=== PATIENT | female | born 1950 | race Hispanic/Latino ===

== ENCOUNTER → 2018-10-07 | Outpatient (CLI) | payer MEDICARE ==
--- NOTE | 2018-10-07 16:31 | Diagnostic Imaging Report ---
[facility]: Brain MRI without IV contrast History: Dizziness, giddiness, history of prior stroke Comparison studies: None Technique: Sagittal and axial T2 FS, axial DWI, axial T2*GRE, axial T1 FLAIR and axial coronal T2 FLAIR. Intravenous contrast: None Findings: Scalp: Normal in signal. No masses. Bone marrow: Incidental hyperostosis frontalis internus. No signal abnormalities. Brain sulci: Appropriate for age. Ventricles: Normal in size. No hydrocephalus. Extra axial spaces: No mass, no fluid collection. Parenchyma: Chronic insults with encephalomalacia and gliosis along the right superior, middle and inferior frontal gyri with involvement of the right frontal operculum and right anterior insula in the right MCA territory. Small additional cortical/juxtacortical insults are present in the right superior parietal lobule and in the precuneus gyrus of the posterior right medial parietal lobe in the distal right MCA territory. Small insult in the right precuneus gyrus is with decreased signal on the T2*GRE sequence which may reflect hemosiderin related to prior hemorrhage A few additional small foci of T2 FLAIR hyperintensity in the supratentorial white matter nonspecific most compatible with chronic microvascular ischemic changes. 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 Less likely consideration would include dystrophic calcification as sequela prior infection/inflammation or small cavernous malformation. No mass, acute hemorrhage or acute ischemia. Suprasellar region: No abnormalities. Craniocervical junction: Patent foramen magnum. No Chiari malformation. Vessels: Normal flow-voids in the arteries and sinuses. IMPRESSION: 1. 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 2. Minimal supratentorial chronic microvascular ischemic changes. Signed by: Dr. Itz Mckinley M.D. on 10/07/2018 4:28 PM
== END ==
LOC: MRI 13:15
PROVIDERS: ATTEND Family Medicine
DX: R42 Dizziness and giddiness (principal); Z86.73 Personal history of transient ischemic attack (TIA), and cerebral infarction without residual deficits
CPT/HCPCS: 70551

== ENCOUNTER 2022-01-29 18:26 | Emergency (ER) | payer OTHER ==
[~2022-01-29] VITALS: Ht 157.5 cm; Wt 83.5 kg
== END 2022-01-29 21:45 | disposition home or self-care (01) ==
LOC: FSED 18:30
DX: S00.83XA Contusion of other part of head, initial encounter (principal); S63.592A Other specified sprain of left wrist, initial encounter; S83.8X2A Sprain of other specified parts of left knee, initial encounter; W01.0XXA Fall on same level from slipping, tripping and stumbling without subsequent striking against object, initial encounter; Y93.01 Activity, walking, marching and hiking; Y99.0 Civilian activity done for income or pay; I10 Essential (primary) hypertension; E11.9 Type 2 diabetes mellitus without complications; E78.5 Hyperlipidemia, unspecified; Z86.73 Personal history of transient ischemic attack (TIA), and cerebral infarction without residual deficits
CPT/HCPCS: 70450; 99283

== ENCOUNTER 2024-07-13 13:54 | Observation (INO) | payer MEDICARE ==
[2024-07-13] VITALS (7 sets, daily range): BP systolic 152–201; BP diastolic 88–110; PULSE 76–88; RESP 16–21; TEMP 97.6–98.9; O2SAT 98–100
[~2024-07-13] VITALS: Ht 157.5 cm; Wt 85.3 kg
[~2024-07-13 13:54] MED LIST: MUCINEX DM ER1 EACH PO; ONDANSETRON ODT4 MG PO
[2024-07-13] MEDS ORDERED: SODIUM CHLORIDE 0.9% 100 ML ONE (14:30)
[2024-07-13] MEDS ORDERED: IOPAMIDOL 370 MG/ML 100 ML INFUS..BTL INJ ONE (14:30)
[2024-07-13 14:38] LABS: BASOPHILS % 0.4 % (0.0-1.0); EOSINOPHILS # (AUTO) 0.2 (0.0-0.4); EOSINOPHILS % 2.1 % (0.0-6.0); HEMATOCRIT 45.7 % (34.2-44.1); LYMPHOCYTES # (AUTO) 2.5 (1.0-3.2); LYMPHOCYTES % 21.9 % (18.0-39.1); MEAN CORPUSCULAR HEMOGLOBIN 28.8 pg (28-32); MEAN CORPUSCULAR HGB CONC 32.8 g/dL (31-35); MEAN CORPUSCULAR VOLUME 87.7 fL (81-99); MONOCYTES # (AUTO) 0.9 (0.2-0.8); NEUTROPHILS # (AUTO) 7.6 (2.1-6.9); PLATELET COUNT 231 x10e3/uL (140-360); RED BLOOD COUNT 5.21 x10e6/uL (3.6-5.1); RED CELL DISTRIBUTION WIDTH 13.5 % (11.7-14.4); WHITE BLOOD COUNT 11.31 x10e3/uL (4.8-10.8)
[2024-07-13 14:55] LABS: INR 0.95; PARTIAL THROMBOPLASTIN TIME 26.1 seconds (23.8-35.5); PROTHROMBIN TIME 13.3 seconds (11.9-14.5)
[2024-07-13 15:02] LABS: BILIRUBIN,TOTAL 0.4 mg/dL (0.2-1.2); CALCIUM 9.3 mg/dL (8.4-10.2); CREATININE, SERUM 0.86 mg/dL (0.57-1.11); TOTAL PROTEIN 8.1 g/dL (6.5-8.1)
[2024-07-13] MEDS: ASPIRIN 325 MG TAB PO ONE (15:59)
[2024-07-13] MEDS ORDERED: CLONIDINE HCL 0.1 MG TAB ONE (16:33)
[2024-07-13] MEDS: CLONIDINE HCL 0.1 MG TAB PO ONE (16:38)
[2024-07-13] MEDS: BELLADONNA ALK/PHENOBARBITAL 5 ML UDC PO STA (16:54)
[2024-07-13] MEDS: MAGNESIUM/ALUMINUM/SIMETHICONE 30 ML UDC PO ONE (16:54)
[2024-07-13] MEDS: LIDOCAINE VISC 2% SOLN 15 ML UDC PO ONE (16:54)
[2024-07-13 18:45] LABS: CLARITY,URINE CLEAR (CLEAR); COLOR,URINE COLORLESS (YELLOW)
[2024-07-13 18:46] LABS: BILIRUBIN,URINE NEGATIVE (NEGATIVE); GLUCOSE, URINE 500 (NEGATIVE); KETONES,URINE 1+ (NEGATIVE); LEUKOCYTE ESTERASE ,URINE NEGATIVE (NEGATIVE); NITRITE,URINE NEGATIVE (NEGATIVE); PH,URINE 7 (5 - 7); PROTEIN,URINE DIPSTICK NEGATIVE (NEGATIVE); URINE UROBILINOGEN 0.2 mg/dL (0.2 - 1)
[2024-07-13 19:01] LABS: EPITHELIAL CELLS,URINE RARE /LPF; RBC,URINE 0-5 /HPF (0-5); WBC,URINE (MAN) 0-5 /HPF (0-5)
[2024-07-13] MEDS ORDERED: METOPROLOL SUCCINATE 25 MG TAB XL PO SCH (20:15)
[2024-07-13] MEDS ORDERED: METOPROLOL TARTRATE INJ 1 MG/ML VIAL IV PRN (20:15)
[2024-07-13] MEDS: ACETAMINOPHEN 325 MG TAB PO PRN (20:34)
[2024-07-13] MEDS: METOPROLOL TARTRATE 25 MG TAB PO SCH (20:56)
[2024-07-14] VITALS (10 sets, daily range): BP systolic 114–157; BP diastolic 58–90; PULSE 63–79; RESP 18–20; TEMP 97.5–98.8; O2SAT 95–98
[2024-07-14] MEDS ORDERED: CLONIDINE HCL0.2 MG PO (04:15)
[2024-07-14] MEDS ORDERED: CITALOPRAM HBR20 MG PO (04:15)
[2024-07-14] MEDS ORDERED: PRAVASTATIN SOD20 MG PO (04:15)
[2024-07-14] MEDS ORDERED: METFORMIN HCL500 M1 PO (04:15)
[2024-07-14] MEDS ORDERED: LISINOPRIL10 MG PO (04:15)
[2024-07-14] MEDS ORDERED: GLIPIZIDE5 MG PO (04:15)
[2024-07-14] MEDS ORDERED: JARDIANCE10 MG PO (04:15)
[2024-07-14] MEDS ORDERED: TOPIRAMATE25 MG PO (04:15)
[2024-07-14 05:20] LABS: BASOPHILS % 0.3 % (0.0-1.0); EOSINOPHILS # (AUTO) 0.4 (0.0-0.4); EOSINOPHILS % 3.2 % (0.0-6.0); HEMATOCRIT 42.5 % (34.2-44.1); HEMOGLOBIN 14.5 g/dL (12.0-16.0); LYMPHOCYTES # (AUTO) 3.1 (1.0-3.2); LYMPHOCYTES % 26.9 % (18.0-39.1); MEAN CORPUSCULAR HEMOGLOBIN 29.1 pg (28-32); MEAN CORPUSCULAR HGB CONC 34.1 g/dL (31-35); MEAN CORPUSCULAR VOLUME 85.3 fL (81-99); MONOCYTES # (AUTO) 1.1 (0.2-0.8); MONOCYTES % 9.2 % (4.4-11.3); NEUTROPHILS # (AUTO) 6.9 (2.1-6.9); PLATELET COUNT 234 x10e3/uL (140-360); RED BLOOD COUNT 4.98 x10e6/uL (3.6-5.1); RED CELL DISTRIBUTION WIDTH 13.3 % (11.7-14.4); WHITE BLOOD COUNT 11.41 x10e3/uL (4.8-10.8)
[2024-07-14 06:04] LABS: ANION GAP 13.9 mmol/L (8-16); CALCIUM 8.8 mg/dL (8.4-10.2); CREATININE, SERUM 0.77 mg/dL (0.57-1.11); POTASSIUM 3.9 mmol/L (3.5-5.1)
[2024-07-14] MEDS ORDERED: DEXTROSE 50% SYRINGE 50 ML IV PRN (10:00)
[2024-07-14 10:36] LABS: CHOL/HDL RATIO 2.3 (3.0-3.6)
[2024-07-14] MEDS: INSULIN REGULAR, HUMAN 100 UNIT/1 ML SQ SCH (11:30)
[2024-07-14] MEDS: ASPIRIN 81 MG ENTERIC COATED PO SCH (11:41)
[2024-07-14] MEDS: ENOXAPARIN SOD INJ 40 MG/0.4 ML SYR SC SCH (17:06)
[2024-07-14] MEDS: CITALOPRAM HYDROBROMIDE 20 MG TAB PO SCH (21:50)
[2024-07-14] MEDS: TOPIRAMATE 25 MG TAB PO SCH (21:50)
[2024-07-14] MEDS ORDERED: OZEMPIC2 MG/0.75 (21:55)
[2024-07-15] VITALS: BP 145/75; PULSE 73; RESP 16; TEMP 97.7; O2SAT 97
[2024-07-15 05:44] VITALS: BP 152/86; PULSE 83; RESP 20; TEMP 97.3; O2SAT 94
[2024-07-15 08:00] VITALS: BP 133/92; PULSE 69; RESP 18; TEMP 98.1; O2SAT 99
[2024-07-15 08:10] VITALS: BP 133/92; PULSE 69; RESP 18; TEMP 98.1; O2SAT 99
[2024-07-15] MEDS: PRAVASTATIN 20 MG TAB PO SCH (09:35)
[2024-07-15] MEDS ORDERED: ASPIRIN EC81 MG PO (10:07)
[2024-07-15] MEDS ORDERED: LOPRESSOR25 MG PO (10:07)
== END 2024-07-15 11:50 | disposition home or self-care (01) ==
LOC: ER 14:00 → ERHOLD 15:20 → MED/SURG 18:33
PROVIDERS: ADMIT Internal Medicine; ATTEND Internal Medicine
DX: I16.1 Hypertensive emergency (principal); I10 Essential (primary) hypertension; I67.4 Hypertensive encephalopathy; E11.9 Type 2 diabetes mellitus without complications; Z79.84 Long term (current) use of oral hypoglycemic drugs; Z79.85 Long-term (current) use of injectable non-insulin antidiabetic drugs; E78.00 Pure hypercholesterolemia, unspecified; Z86.73 Personal history of transient ischemic attack (TIA), and cerebral infarction without residual deficits
CPT/HCPCS: 36415 ×3; 70496; 70498; 70551; 71045; 80048; 80053; 80061; 81001; 82948 ×2; 83036; 84484; 85025 ×2; 85610; 85730; 93005 ×2; 94799 ×2; 95819; 99284; G0378 ×3; J1650; J2470; J7050; Q9967; 70450